=== PATIENT | female | born 1945 | race Asian ===

== ENCOUNTER 2024-07-15 20:24 | Inpatient (IN) | payer MEDICARE ==
[~2024-07-15] VITALS: Ht 154.9 cm; Wt 51.7 kg
[2024-07-16] MEDS ORDERED: ANAS1TAB8 (00:14)
[2024-07-16] MEDS ORDERED: VALS80TA2 (00:14)
[2024-07-16] MEDS ORDERED: MAG HYDROX/AL HYDROX/SIMETH 30 ML LIQUID UDC PO PRN ×2 (02:30→10:30)
[2024-07-16] MEDS ORDERED: LORAZEPAM 1 MG TABLET PO PRN (02:30)
[2024-07-16] MEDS ORDERED: ACETAMINOPHEN 325 MG TABLET PO PRN (02:30)
[2024-07-16] MEDS ORDERED: TEMAZEPAM 7.5 MG CAPSULE PO PRN (02:30)
[2024-07-16] MEDS: BLOOD SUGAR DIAGNOSTIC 1 EACH STRIP VI ONE (02:31)
[2024-07-16 03:00] VITALS: BP 146/69; TEMP 97.9; O2SAT 98
[2024-07-16] MEDS ORDERED: MELA3CAP2 PO (06:36)
[2024-07-16] MEDS ORDERED: QUET50TA PO (06:36)
[2024-07-16] MEDS ORDERED: SENN-291 PO (06:36)
[2024-07-16] MEDS ORDERED: HYDR-894 PO (06:40)
[2024-07-16 07:56] VITALS: BP 112/63; TEMP 98; O2SAT 98
[2024-07-16] MEDS ORDERED: HYDR-4209 PO (09:00)
[2024-07-16] MEDS ORDERED: NIFE-35 PO (09:00)
[2024-07-16] MEDS ORDERED: TRAM50TA2 PO (09:00)
[2024-07-16] MEDS ORDERED: SENN8.6T19 PO (09:00)
[2024-07-16] MEDS ORDERED: ACET325T53 PO (09:00)
[2024-07-16] MEDS ORDERED: ASPI81TA31 PO (09:00)
[2024-07-16] MEDS ORDERED: ANAS1TAB50 PO (09:00)
[2024-07-16] MEDS ORDERED: DIPH25TA23 PO (09:00)
[2024-07-16] MEDS ORDERED: MAG-5 PO (09:00)
[2024-07-16] MEDS ORDERED: TRAMADOL HCL 50 MG TABLET PO PRN (10:30)
[2024-07-16] MEDS ORDERED: ACETAMINOPHEN 325 MG TABLET-SA PATIENTS-PAIN ONLY PO PRN (10:30)
[2024-07-16] MEDS: QUETIAPINE FUMARATE 25 MG TABLET PO SCH (16:36)
[2024-07-16] MEDS: SENNOSIDES 1 TABLET PO SCH (16:36)
[2024-07-16 17:36] VITALS: BP 134/82; TEMP 97.1
[2024-07-16 20:06] VITALS: BP 102/56; TEMP 98; O2SAT 95
[2024-07-16] MEDS: hydrALAZINE HCL 25 MG TABLET PO SCH (20:06)
[2024-07-16] MEDS: TEMAZEPAM 7.5 MG CAPSULE PO PRN (23:56)
[2024-07-17 08:04] VITALS: BP 141/70; TEMP 98; O2SAT 99
[2024-07-17] MEDS: LORAZEPAM 1 MG TABLET PO PRN (08:55)
[2024-07-17] MEDS: ASPIRIN 81 MG TAB.CHEW PO SCH (08:55)
[2024-07-17] MEDS: NIFEdipine XL 30 MG TABSR PO SCH (08:56)
[2024-07-17] MEDS: ANASTROZOLE 1 MG TABLET PO SCH (09:00)
[2024-07-17 09:12] LABS: ALANINE AMINOTRANSFERASE 25 U/L (14-59); ALBUMIN 3.3 g/dL (3.4-5.0); ALKALINE PHOSPHATASE 82 U/L (50-136); ASPARTATE AMINOTRANSFERASE 31 U/L (15-37); BILIRUBIN,TOTAL 0.7 mg/dL (0.2-1.0); CALCIUM 8.6 mg/dL (8.5-10.1); CARBON DIOXIDE 24 mmol/L (21-32); CHLORIDE 107 mmol/L (98-107); GLUCOSE 100 mg/dL (74-106); SODIUM SERUM 143 mmol/L (136-145); TOTAL PROTEIN, SERUM 6.9 g/dL (6.4-8.2); UREA NITROGEN, BLOOD 21 mg/dL (7-18)
[2024-07-17 09:17] LABS: CREATININE < 0.2 mg/dL (0.6-1.3)
[2024-07-17 09:24] LABS: POTASSIUM 4.7 mmol/L (3.5-5.1)
[2024-07-17 15:07] VITALS: BP 115/67; TEMP 98; O2SAT 98
[2024-07-17 20:22] VITALS: BP 113/68; TEMP 98; O2SAT 99
[2024-07-17] MEDS: MAGNESIUM HYDROXIDE 30 ML LIQUID UDC PO PRN (22:09)
[2024-07-18 08:00] VITALS: BP 115/61; TEMP 97.9; O2SAT 98
[2024-07-18 16:00] VITALS: BP 144/83; TEMP 97.4; O2SAT 100
[2024-07-18 20:00] VITALS: BP 104/53; TEMP 98; O2SAT 98
[2024-07-19 08:00] VITALS: BP 154/84; TEMP 98.4; O2SAT 97
[2024-07-19 16:00] VITALS: BP 149/84; TEMP 98.1; O2SAT 100
[2024-07-19 19:39] VITALS: BP 146/71; TEMP 98.1; O2SAT 99
[2024-07-20 08:08] VITALS: BP 135/75; TEMP 98; O2SAT 99
[2024-07-20 15:26] VITALS: BP 155/69; TEMP 98; O2SAT 98
[2024-07-20 20:00] VITALS: BP 107/56; TEMP 97.6; O2SAT 98
[2024-07-20] MEDS: QUETIAPINE FUMARATE 25 MG TABLET PO SCH (20:20)
[2024-07-21 07:44] VITALS: BP 133/67; TEMP 98; O2SAT 99
[2024-07-21 15:33] VITALS: BP 99/53; TEMP 98; O2SAT 96
[2024-07-21] MEDS: QUETIAPINE FUMARATE 25 MG TABLET PO SCH (20:21)
[2024-07-22 08:02] VITALS: BP 140/77; TEMP 98.1; O2SAT 100
[2024-07-22] MEDS: ENSURE ENLIVE (VAN) 240 ML LIQUID PO SCH (09:00)
[2024-07-22] MEDS: DIVALPROEX SPRINKLE 125 MG CAP.SPRINK PO SCH (13:00)
[2024-07-22 16:00] VITALS: BP 138/60; TEMP 98.3; O2SAT 100
[2024-07-22 19:39] VITALS: BP 146/68; TEMP 98.2; O2SAT 98
[2024-07-23 08:00] VITALS: BP 128/58; TEMP 97.6; O2SAT 100
[2024-07-23] MEDS: DIVALPROEX SPRINKLE 125 MG CAP.SPRINK PO SCH ×2 (16:22→20:26)
[2024-07-23 16:33] VITALS: BP 103/61; TEMP 98; O2SAT 100
[2024-07-23 20:00] VITALS: BP 97/54; TEMP 98.1; O2SAT 95
[2024-07-23] MEDS: QUETIAPINE FUMARATE 25 MG TABLET PO SCH (20:27)
[2024-07-24 08:00] VITALS: BP 145/77; TEMP 97.8; O2SAT 99
[2024-07-24 16:02] VITALS: BP 140/77; TEMP 98; O2SAT 100
[2024-07-24 20:00] VITALS: BP 112/61; TEMP 97.8; O2SAT 96
[2024-07-25 07:50] VITALS: BP 116/69; TEMP 98; O2SAT 98
[2024-07-25 16:00] VITALS: BP 130/73; TEMP 98.1; O2SAT 98
[2024-07-25 20:00] VITALS: BP 115/59; TEMP 97.8; O2SAT 98
[2024-07-26 08:02] VITALS: BP 123/72; TEMP 97.9; O2SAT 96
[2024-07-26] MEDS: risperiDONE-M 0.5 MG TAB.RAPDIS PO SCH (12:09)
[2024-07-26 16:02] VITALS: BP 138/78; TEMP 98; O2SAT 100
[2024-07-26 20:00] VITALS: BP 149/87; TEMP 97.7; O2SAT 99
[2024-07-26] MEDS ORDERED: risperiDONE-M 0.5 MG TAB.RAPDIS PO SCH (21:00)
[2024-07-27 08:02] VITALS: BP 162/84; TEMP 97.6; O2SAT 100
[2024-07-27 16:00] VITALS: BP 137/69; TEMP 98; O2SAT 96
[2024-07-27] MEDS: risperiDONE-M 0.5 MG TAB.RAPDIS PO SCH (16:48)
[2024-07-27 19:58] VITALS: BP 148/74; TEMP 98.1; O2SAT 97
[2024-07-28 08:00] VITALS: BP 123/80; TEMP 98.1; O2SAT 96
[2024-07-28 09:31] LABS: ALANINE AMINOTRANSFERASE 26 U/L (14-59); ALBUMIN 3.5 g/dL (3.4-5.0); ALKALINE PHOSPHATASE 90 U/L (50-136); ASPARTATE AMINOTRANSFERASE 31 U/L (15-37); BILIRUBIN,TOTAL 0.6 mg/dL (0.2-1.0); CALCIUM 9.1 mg/dL (8.5-10.1); CARBON DIOXIDE 24 mmol/L (21-32); CHLORIDE 104 mmol/L (98-107); CREATININE 0.7 mg/dL (0.6-1.3); GLUCOSE 106 mg/dL (74-106); POTASSIUM 5.2 mmol/L (3.5-5.1); SODIUM SERUM 137 mmol/L (136-145); TOTAL PROTEIN, SERUM 7.3 g/dL (6.4-8.2); UREA NITROGEN, BLOOD 23 mg/dL (7-18); VALPROIC ACID 41 ug/mL (50-100)
[2024-07-28 09:38] LABS: BASOPHILS % (AUTO) 0.3 % (0.0-2.0); HEMATOCRIT 42.2 % (31.2-41.9); LYMPHOCYTES # (AUTO) 1.4 K/uL (0.8-4.8); MEAN CORPUSCULAR HEMOGLOBIN 31.3 uug (24.7-32.8); MEAN CORPUSCULAR HGB CONC 33 g/dL (32.3-35.6); MEAN CORPUSCULAR VOLUME 94.3 fL (75.5-95.3); MONOCYTES # (AUTO) 0.3 K/uL (0.1-1.30); MONOCYTES % (AUTO) 6.4 % (0.0-11.0); NEUTROPHILS # (AUTO) 3.2 K/uL (1.8-8.9); NEUTROPHILS % (AUTO) 63.3 % (38.5-71.5); PLATELET COUNT (AUTO) 210 K/uL (179-408); RED BLOOD CELL COUNT(AUTO) 4.48 MIL/uL (3.63-4.92); RED CELL DISTRIBUTION WIDTH 15.4 % (12.3-17.7)
[2024-07-28 09:45] LABS: DIFFERENTIAL COMMENT 1
[2024-07-28 16:00] VITALS: BP 115/64; TEMP 98.4; O2SAT 98
[2024-07-28 20:19] VITALS: BP 120/77; TEMP 98; O2SAT 97
[2024-07-28] MEDS: risperiDONE-M 0.5 MG TAB.RAPDIS PO SCH (21:01)
[2024-07-29 07:36] VITALS: BP 144/72; TEMP 97; O2SAT 97
[2024-07-29 16:00] VITALS: BP 112/63; TEMP 97.2; O2SAT 97
[2024-07-29 19:52] VITALS: BP 130/64; TEMP 97.9; O2SAT 96
[2024-07-30 08:00] VITALS: BP 134/86; TEMP 97.9; O2SAT 98
[2024-07-30 08:33] LABS: THYROID STIMULATING HORMONE 3.799 mIU/mL (0.358-3.740)
[2024-07-30 08:53] VITALS: BP 134/86
[2024-07-30 08:55] LABS: CALCIUM 9.5 mg/dL (8.5-10.1); CARBON DIOXIDE 31 mmol/L (21-32); CHLORIDE 103 mmol/L (98-107); CREATININE 0.9 mg/dL (0.6-1.3); GLUCOSE 104 mg/dL (74-106); MAGNESIUM 2.4 mg/dL (1.8-2.4); POTASSIUM 4.4 mmol/L (3.5-5.1); SODIUM SERUM 143 mmol/L (136-145); UREA NITROGEN, BLOOD 22 mg/dL (7-18)
== END 2024-07-30 11:45 | DRG 885 ==
LOC: ER 20:24 → EDBD 07-16 00:12 → GPS 07-16 00:12
PROVIDERS: ADMIT Psychiatry & Neurology Psychosomatic Medicine; ATTEND Nurse Practitioner Acute Care
DX: F25.9 Schizoaffective disorder, unspecified (principal); E44.1 Mild protein-calorie malnutrition; F03.93 Unspecified dementia, unspecified severity, with mood disturbance; F03.911 Unspecified dementia, unspecified severity, with agitation; E88.09 Other disorders of plasma-protein metabolism, not elsewhere classified; I10 Essential (primary) hypertension; Z85.3 Personal history of malignant neoplasm of breast; Z91.148 Patient's other noncompliance with medication regimen for other reason; R79.89 Other specified abnormal findings of blood chemistry; Z79.899 Other long term (current) drug therapy
CPT/HCPCS: 36415; 80164; 83735; 84443; 85025